=== PATIENT | female | born 1985 | race African-American/Black ===

== ENCOUNTER 2023-06-07 20:31 | Emergency (ER) | payer BC ==
[2023-06-07 20:39] VITALS: BP 109/76; PULSE 100; RESP 18; TEMP 98.2; BMI 30.9
[2023-06-07] MEDS ORDERED: DIPHTH,PERTUSS(ACELL),TET VAC 0.5 ML VIAL IM ONE ×2 (20:58→21:45)
[2023-06-07] MEDS ORDERED: DIPHTH,PERTUSS(ACELL),TET 0.5 ML DISP.SYRIN IM ONE (21:01)
[2023-06-07] MEDS ORDERED: ACETAMINOPHEN 500 MG TABLET (FP) ONE (21:01)
[2023-06-07] MEDS: ACETAMINOPHEN 500 MG TABLET (FP) PO ONE (21:13)
[2023-06-07] MEDS: DIPHTH,PERTUSS(ACELL),TET 0.5 ML DISP.SYRIN IM ONE (21:53)
[2023-06-07] MEDS ORDERED: BACITRACIN 0.9 GM PACKET ONE (22:08)
[2023-06-07] MEDS: BACITRACIN ZINC 15 GM TUBE TOPICAL OINTMENT TP ONE (22:21)
[2023-06-07] MEDS ORDERED: BACITRACIN ZINC 15 GM TUBE TOPICAL OINTMENT ONE (22:21)
== END 2023-06-07 23:06 | disposition home or self-care (01) ==
LOC: JERFT 20:31 → JER 20:31 → JERFT 23:06
PROC: 2W3FX1Z Immobilization of Left Hand using Splint (ICD-10-PCS; principal; 2023-06-07)
PROC: 3E0234Z Introduction of Serum, Toxoid and Vaccine into Muscle, Percutaneous Approach (ICD-10-PCS; 2023-06-07)
DX: S62.305B Unspecified fracture of fourth metacarpal bone, left hand, initial encounter for open fracture (principal); R20.0 Anesthesia of skin; M79.89 Other specified soft tissue disorders; W23.1XXA Caught, crushed, jammed, or pinched between stationary objects, initial encounter
CPT/HCPCS: 29125; 73130-TC-LT-FY; 73140-TC-LT-FY; 90471; 90715; 99284-25